=== PATIENT | female | born 1985 | race Caucasian/White ===

== ENCOUNTER 2024-05-06 13:47 | Emergency (ER) | payer SELFPAY ==
[~2024-05-06] VITALS: Ht 167.6 cm; Wt 60.0 kg
[2024-05-06 13:54] VITALS: BP 114/58; PULSE 84; RESP 16; TEMP 98.3; O2SAT 100
== END 2024-05-06 18:57 | disposition left against medical advice (07) ==
LOC: ER 13:47
DX: R10.9 Unspecified abdominal pain (principal); Z53.21 Procedure and treatment not carried out due to patient leaving prior to being seen by health care provider